=== PATIENT | female | born 1990 | race Caucasian/White ===

== ENCOUNTER 2017-03-23 11:52 | Inpatient (IN) | payer BC ==
[~2017-03-23] VITALS: Ht 162.6 cm; Wt 88.7 kg
[2017-03-23 11:56] VITALS: BP 123/62; Ht 162.6 cm; Wt 88.7 kg
[2017-03-23] MEDS ORDERED: PREN1TAB17 (11:58)
[2017-03-23] MEDS ORDERED: TERBUTALINE 1 MG/ML INJ SC ONE ×2 (12:30→14:00)
[2017-03-23] MEDS ORDERED: LACTATED RINGER'S 1,000 ML IV ONE (12:30)
--- NOTE | 2017-03-23 13:19 | RADRPT ---
PROCEDURE: US biophysical profile. Transvaginal sonography of the cervix. CLINICAL INDICATION: Ruptured membranes. TECHNIQUE: Multiple sonographic images of the uterus were obtained. In addition, transvag inal sonography of the cervix was performed. The images were reviewed on a PACS workstation. COMPARISON: No prior studies are available for comparison. FINDINGS: There is a single live intrauterine gestation. heart rate is 137 beats per minute. The position is cephalic. The placenta is posterior grade II with no abruption or previa. The JAMESON is 10.2 cm. (Normal = 5-20 cm.) Cervical length is 2.9 cm. Breathing Movement: 2 Gross Body Movement: 2 Tone: 2 Qualitative Amniotic Fluid Volume: 2 TOTAL: 8 IMPRESSION: 1. The biophysical score is 8/8. 2. Cervical length is 2.9 cm. RPTAT: QQ .Montez Cuenca MD, MD Date Time Electronically viewed and signed by .Montez Cuenca MD, on 03/23/2017 13:19 .R/
--- NOTE | 2017-03-23 14:39 | TRIAGE ---
OB Triage Datetime Report Generated by CPN: 03/23/2017 14:39 Datetime: 03/23/2017 13:41 Monitor Mode: External Pattern: Normal: <= 5 Contractions in 10 Minutes Contraction Comments: PER PATIENT IS STILL HAVING UC'S Heart Rate FHR Baseline Rate: 145 Monitor Mode: External US Variability: Moderate 6-25 bpm Accelerations: 15X15 Decelerations: None Category: Category I Datetime: 03/23/2017 12:00 Stage of : OB Triage Assessment Type: Triage Maternal Assessment Level of Consciousness: Fully Conscious DTR's/Clonus: DTRs 2+; No Clonus Headache: Denies Blurred Vision: No Respiratory Effort: Unlabored; Regular Rhythm; Equal Expansion Breath Sounds, Left: Clear and Equal Breath Sounds, Right: Clear and Equal Nausea/Vomiting: Denies RUQ Epigastric Pain: Denies Lower Extremities Edema: None Degree: None Upper Extremities Edema: None Degree: None Facial Edema: None Temperature Route: Oral Fall Risk Assessment History of Falling: (0) No Secondary Diagnosis: (0) No Ambulatory Aid: (0) Bedrest/Nurse Assist IV Therapy: (0) No Gait: (0) Normal/Bedrest/Immobile Mental Status: (0) Oriented to Own Ability Fall Score: 0 Fall Risk Score Definition: No Risk: No action required Labor Evaluation Frequency: 1-3 Monitor Mode: External Duration (sec)2399: 30-50 Pattern: Normal: <= 5 Contractions in 10 Minutes Heart Rate FHR Baseline Rate: 145 Monitor Mode: External US Variability: Moderate 6-25 bpm Accelerations: 15X15 Decelerations: None Category: Category I Pain Assessment Pain Scale: 0 Pain Presence: None/Denies Pain Type: N/A Datetime: 03/23/2017 11:59 Time of Arrival: 03/23/2017 11:41 EGA: 32.0 Arrived By: Ambulatory Arrived From: Home Chief Complaint: ? SROM Movement: Present Contractions: Denies/Absent Rupture of Membranes: Unsure Vaginal Bleeding: Small Vaginal Discharge: Denies Recent Sexual Intercouse: Yes Abdominal Trauma: Not Applicable Patient Complaints: Other Time Provider Notified: 03/23/2017 12:15 Provider Notified: DR. MENDEZ Initial Plan: [id number] CALL ,
[2017-03-23] MEDS: LACTATED RINGER'S 1,000 ML IV SCH (14:44)
[2017-03-23] MEDS: BETAMET NA PHOS/AC(6 MG/ML) 5ML INJ IM SCH (15:07)
[2017-03-23] MEDS ORDERED: AMPICILLIN 2 GM/NS (PMX) 100 ML ONE (15:29)
[2017-03-23] MEDS: AMPICILLIN 2 GM/NS (PMX) 100 ML IVPB SCH ×2 (15:51→22:02)
--- NOTE | 2017-03-23 16:22 | HP ---
Date/Time of Note Date/Time of Note DATE: 03/23/17 TIME: 16:03 OB - History Hx of Present Free Text/Dictation March 23, 2017. OB triage and history and physical for admission: This patient is a 26 years old 3 para 1 1 with estimated date of confinement of 2017, which makes her 32 weeks and 2 days now. She came to triage complaining of a rupture of a member and leaking fluid vaginally. On examination; she is well-developed and nourished somewhat overweight woman. Her general vital signs are normal; with blood pressure 123/62, pulse rate of 100, respiration of 16, and temperature of 98.4 Fahrenheit. Order was placed for the test of possible rupture of membranes. In the ROM plus test came back positive Laboratory Tests Test 03/23/17 12:00 Membranes Rupture POSITIVE Current Medications Medications (Trade) Dose Ordered Sig/Brittney Route PRN Reason Start Time Stop Time Status Last Admin Dose Admin Terbutaline Sulfate 0.25 mg 0.25 mg ONCE ONCE SC 03/23/17 12:30 03/23/17 12:31 DC 03/23/17 12:33 Lactated Ringer's (Lr) 1,000 ml @ 1,000 mls/hr Q1H ONCE IV 03/23/17 12:30 03/23/17 13:29 DC 03/23/17 12:36 Terbutaline Sulfate 0.25 mg 0.25 mg ONCE ONCE SC 03/23/17 14:00 03/23/17 14:01 DC 03/23/17 13:55 Lactated Ringer's (Lr) 1,000 ml @ 125 mls/hr Q8H IV 03/23/17 14:27 03/23/17 14:44 Betamethasone Acet/Betameth SodPhos 12 mg 12 mg Q24H IM 03/23/17 14:30 03/24/17 14:31 03/23/17 15:07 Ampicillin (Ampicillin 2 Gm/ NS (Pmx)) 100 ml @ 100 mls/hr Q6 IVPB 03/23/17 18:00 03/23/17 18:00 DC Azithromycin 500 mg 500 mg DAILY PO 03/24/17 09:00 Ampicillin 100 ml @ 100 mls/hr Q6H IVPB 03/23/17 16:00 03/23/17 15:51 Ampicillin (Ampicillin 2 Gm/ NS (Pmx)) 100 ml @ STK-MED ONCE .ROUTE 03/23/17 15:29 03/23/17 15:30 DC . . . . On ultrasound study ; report was single live intrauterine gestation with heart rate of 137 bpm, in cephalic presentation , placenta was posterior ,no evidence of a previa, amniotic fluid index was 10.2 cm, the cervical length was reported 2.9 cm ,her biophysical profile was 8 Care: Good Care Other Concerns: .With these finding patient will be admitted in the hospital order was placed to give her betamethasone and to start antibiotic azithromycin 1 g orally followed by ampicillin 2 g IV every 6 hours for about 48 hours we will follow her antibiotic treatment with ampicillin orally 500 mg 3 times daily to stop contraction we will start her on mag sulfate . . . .. Past Family/Social History * Past Medical, Surgical, Family and Obstetric Histories reviewed from chart. OB Admission Exam Vital Signs Vital Signs Vital Signs Date Time Temp Pulse Resp B/P Pulse Ox O2 Delivery O2 Flow Rate FiO2 03/23/17 11:56 98.4 123/62 Room Air JUDY MARTINEZ MD Mar 23, 2017 16:13
[2017-03-23 16:55] LABS: BASOPHILS % 0.1 % (0.0-2.0); EOSINOPHILS % 0.1 % (0.0-7.0); HEMATOCRIT 34.4 % (37.0-47.0); HEMOGLOBIN 11.3 g/dl (12.0-16.0); LYMPHOCYTES # 1.9 10^3/ul (0.8-2.9); LYMPHOCYTES % 12.5 % (15.0-51.0); MEAN CORPUSCULAR HEMOGLOBIN 28.5 pg (29.0-33.0); MEAN CORPUSCULAR HGB CONC 32.8 g/dl (32.0-37.0); MEAN CORPUSCULAR VOLUME 86.9 fl (82.0-101.0); MEAN PLATELET VOLUME 10.1 fl (7.4-10.4); MONOCYTE # 0.8 10^3/ul (0.3-0.9); MONOCYTES % 5.6 % (0.0-11.0); NEUTROPHILS % 80.8 % (39.0-77.0); PLATELET COUNT 375 10^3/UL (140-415); RED BLOOD COUNT 3.96 10^6/ul (4.20-5.40); RED CELL DISTRIBUTION WIDTH 12.9 % (11.5-14.5); WHITE BLOOD COUNT 14.8 10^3/ul (4.8-10.8)
[2017-03-23] MEDS ORDERED: AZITHROMYCIN 250 MG TAB PO SCH ×2 (17:00→18:00)
[2017-03-23] MEDS ORDERED: MAGNESIUM SULFATE 4 GM/100 ML 100 ML IVPB ONE ×2 (17:00)
[2017-03-23 17:01] LABS: ADD UMIC YES; UR ASCORBIC ACID NEGATIVE (NEGATIVE); UR BACTERIA FEW /HPF (NONE SEEN); UR BILIRUBIN (Dip) NEGATIVE (NEGATIVE); UR BLOOD (Dip) NEGATIVE (NEGATIVE); UR CLARITY SLIGHTLY CLOUDY (CLEAR); UR COLOR YELLOW (YELLOW); UR GLUCOSE (Dip) 1+ mg/dL (NEGATIVE); UR KETONES (Dip) 2+ mg/dL (NEGATIVE); UR LEUKOCYTE ESTERASE (Dip) TRACE Leu/ul (NEGATIVE); UR MUCUS MANY /HPF (NONE SEEN); UR NITRITE (Dip) NEGATIVE (NEGATIVE); UR RBC 1 /HPF (0-5); UR SPECIFIC GRAVITY (Dip) 1.018 (1.003-1.030); UR SQUAMOUS EPITHELIAL CELL MANY /HPF (FEW); UR TOTAL PROTEIN (Dip) 1+ mg/dl (NEGATIVE); UR UROBILINOGEN (Dip) NEGATIVE (NEGATIVE)
[2017-03-23 17:08] LABS: INR 0.98
[2017-03-23 17:09] LABS: PARTIAL THROMBOPLASTIN TIME 24.3 Sec (25.0-35.0)
[2017-03-23 17:28] LABS: BARBITURATES Negative (NEGATIVE)
[2017-03-23 17:29] LABS: BENZODIAZEPINES Negative (NEGATIVE); CANNABINOIDS Negative (NEGATIVE); COCAINE Negative (NEGATIVE); OPIATES Negative (NEGATIVE)
[2017-03-23] MEDS ORDERED: AZITHROMYCIN 250 MG TAB PO ONE (18:00)
[2017-03-23] MEDS ORDERED: AMPICILLIN 2 GM/NS (PMX) 100 ML IVPB SCH (18:00)
--- NOTE | 2017-03-23 18:01 | RADRPT ---
PROCEDURE: US OB. CLINICAL INDICATION: Uncertain size and dates. Ruptured membranes TECHNIQUE: Multiple sonographic images of the uterus were obtained. The images were revi ewed on a PACS workstation. COMPARISON: No prior studies are available for comparison. FINDINGS: There is a single live intrauterine gestation. heart rate is 159 beats per minute. Measurements were made in order to determine age. The results are as follows: BPD = 8.17 cm. HC = 28.86 cm. AC = 30.26 cm. FL = 6.55 cm. Estimated weight is 2252 +/- 338 grams. LMP growth percentile is 89 %. Menstrual age by ultrasound dates is 33 weeks 1 day. The estimated date of delivery is 05/10/2018. Amniotic fluid index is 14.6 cm. Position is cephalic and placenta is right fundal grade II. There is no evidence for an abruption or placenta previa. IMPRESSION: 1. Single live intrauterine gestation of 33 weeks 1 day menstrual age by ultrasound dates. 2. The estimated date of delivery is 05/10/2018. 3. Amniotic fluid index is 14.6 cm. RPTAT: QQ .Montez Cuenca MD, Date Time Electronically viewed and signed by .Montez Cuenca MD, on 03/23/2017 18:01 .R/
[2017-03-23] MEDS: MAGNESIUM SULFATE 20 GM/500 ML 500 ML IV SCH (18:30)
[2017-03-23] MEDS: ACETAMINOPHEN 325 MG TAB PO PRN (22:02)
[2017-03-24 01:27] LABS: BASOPHILS % 0.2 % (0.0-2.0); HEMATOCRIT 35.1 % (37.0-47.0); HEMOGLOBIN 11.4 g/dl (12.0-16.0); LYMPHOCYTES # 1.9 10^3/ul (0.8-2.9); LYMPHOCYTES % 15.2 % (15.0-51.0); MEAN CORPUSCULAR HEMOGLOBIN 28.8 pg (29.0-33.0); MEAN CORPUSCULAR HGB CONC 32.5 g/dl (32.0-37.0); MEAN CORPUSCULAR VOLUME 88.6 fl (82.0-101.0); MEAN PLATELET VOLUME 10.2 fl (7.4-10.4); MONOCYTE # 0.4 10^3/ul (0.3-0.9); MONOCYTES % 2.9 % (0.0-11.0); NEUTROPHIL # 10.2 10^3/ul (1.6-7.5); NEUTROPHILS % 80.4 % (39.0-77.0); PLATELET COUNT 375 10^3/UL (140-415); RED BLOOD COUNT 3.96 10^6/ul (4.20-5.40); WHITE BLOOD COUNT 12.7 10^3/ul (4.8-10.8)
[2017-03-24] MEDS: MAGNESIUM SULFATE 20 GM/500 ML 500 ML IV SCH ×3 (03:52→18:37)
[2017-03-24] MEDS: LACTATED RINGER'S 1,000 ML IV SCH ×3 (03:54→14:27)
[2017-03-24] MEDS: AMPICILLIN 2 GM/NS (PMX) 100 ML IVPB SCH ×4 (03:54→22:07)
[2017-03-24] MEDS: ACETAMINOPHEN 325 MG TAB PO PRN ×2 (08:48→18:37)
[2017-03-24] MEDS ORDERED: AZITHROMYCIN 250 MG TAB PO SCH (09:00)
--- NOTE | 2017-03-24 10:28 | QN ---
Documentation Comment Afebrile Vital signs are stable Denies any leakage from the vagina, last JAMESON on March 23, 2011, 14.6 up from 10.2, with repeat JAMESON today plan pending the report, for possible discharge TED MENDEZ MD Mar 24, 2017 10:28
--- NOTE | 2017-03-24 11:11 | RADRPT ---
PROCEDURE: Limited OB ultrasound CLINICAL INDICATION: Leaking fluid TECHNIQUE: Sonographic evaluation to assess the JAMESON was performed. Transabdominal imaging of the gravid uterus was performed. COMPARISON: OB ultrasound dated 03/23/2017 FINDINGS: There is a single live intrauterine with a heart rate of 128 bpm. position is breech. The placenta is posterior. The JAMESON measures 10.0 cm. IMPRESSION: 1. The JAMESON measures 10.0 cm, compared to 14.6 cm on the prior examination. 2. Breech presentation. RPTAT: HH .Christie Baires MD, MD Date Time Electronically viewed and signed by .Christie Baires MD, on 03/24/2017 11:11 .G/
--- NOTE | 2017-03-24 12:21 | CONS ---
Date/Time of Note Date/Time of Note DATE: 03/24/17 TIME: 12:14 Consultation Date/Type/Reason Admit Date/Time Mar 23, 2017 at 14:36 Date of Consultation: Mar 24, 2017 Type of Consultation: Neonatology consultation Reason for Consultation 32 week with possible rupture of membranes Referring Provider: TED MENDEZ MD Hx of Present Illness I was asked to talk with his mother who is 32 weeks with possible PPROM on 02/20/17 at 0400 hours. Mother was admitted on 03/23/17. She was started on magnesium sulfate and received first dose of betamethasone on at 1500 hrs. and also started on antibiotics on 03/23. Mother is a 26-year-old 3 para 1 term 1 Ab1 living 1 with the sporadic care. She missed 3-4 appointments per the RN. EDC 05/18/2017. Mother' s blood type is B+, RPR nonreactive and rest of the labs are pending. fibronectin was positive once and negative once. ultrasound showed the estimated weight of 2252 g with a gestational age of 33.1 weeks. Gestation by dates is 32.1 weeks today. Mother has history of asthma but however states that she has not been taking any medications at the present time. I talked with mother about the fetus being 32 weeks with risk for respiratory distress syndrome being low. Discussed about providing care as needed. If infant has respiratory distress infant may need oxygen administration, CPAP or Curosurf administration if has mild to moderate respiratory distress syndrome. I discussed about the risks and benefits of each procedure. Also discussed about risk of apnea prematurity and treatment with caffeine. Discussed about risk for sepsis, hyperbilirubinemia, gastroesophageal reflux, NEC and neurodevelopmental delay. Discussed about treatment with phototherapy, infant to be monitored for sepsis and started on antibiotics if needed, IV nutrition including TPN administration and feedings to be started if stable with gavage feedings. Encourage mother to pump breastmilk. Discussed about the benefits of breastmilk. Also discussed about length of hospital stay and possibility of requirement of 4 PICC line for IV nutrition depending on ' s feeding tolerance. Discussed about good prognosis including survival rate of greater than 95% and good outcomes. Mother was reassured about the good prognosis as well as outcomes. All mother's questions were answered and the discussion was concluded after mother had no further questions. Mother has an [id number] at home who is doing well with no medical problems. Thank you for involving us in the care of this mother. Social History Smoking Status: Never smoker Exam/Review of Systems Vital Signs Vitals Vital Signs Date Time Temp Pulse Resp B/P Pulse Ox O2 Delivery O2 Flow Rate FiO2 03/23/17 11:56 98.4 123/62 Room Air Intake and Output 03/23/17 03/23/17 03/24/17 15:00 23:00 07:00 Intake Total 500 ml 2375 ml 1337.5 ml Output Total 200 ml 2050 ml 1150 ml Balance 300 ml 325 ml 187.5 ml Results Result Diagram: 03/24/17 0116 Results 24 hrs Laboratory Tests Test 03/23/17 14:00 03/23/17 16:41 03/24/17 01:16 03/24/17 05:39 Urine Color YELLOW Urine Clarity SLIGHTLY CLOUDY A Urine pH 6.0 Urine Specific [place] 1.018 Urine Ketones 2+ H Urine Nitrite NEGATIVE Urine Bilirubin NEGATIVE Urine Urobilinogen NEGATIVE Urine Leukocyte Esterase TRACE A Urine Microscopic RBC 1 Urine Microscopic WBC 6 H Urine Squamous Epithelial Cells MANY A Urine Bacteria FEW A Urine Mucus MANY A Urine Hemoglobin NEGATIVE Urine Glucose 1+ H Urine Total Protein 1+ H Urine Opiates Screen Negative Urine Barbiturates Negative Urine Amphetamines Screen Negative Urine Benzodiazepines Screen Negative Urine Cocaine Screen Negative Urine Cannabinoids Negative White Blood Count 14.8 H 12.7 H Red Blood Count 3.96 L 3.96 L Hemoglobin 11.3 L 11.4 L Hematocrit 34.4 L 35.1 L Mean Corpuscular Volume 86.9 88.6 Mean Corpuscular Hemoglobin 28.5 L 28.8 L Mean Corpuscular Hemoglobin Concent 32.8 32.5 Red Cell Distribution Width 12.9 13.0 Platelet Count 375 375 Mean Platelet Volume 10.1 10.2 Neutrophils % 80.8 H 80.4 H Lymphocytes % 12.5 L 15.2 Monocytes % 5.6 2.9 Eosinophils % 0.1 0.0 Basophils % 0.1 0.2 Nucleated Red Blood Cells % 0.0 0.0 Neutrophils # 12.0 H 10.2 H Lymphocytes # 1.9 1.9 Monocytes # 0.8 0.4 Eosinophils # 0.0 0.0 Basophils # 0.0 0.0 Nucleated Red Blood Cells # 0.0 0.0 Prothrombin Time 13.0 Prothrombin Time Ratio 1.0 INR International Normalized Ratio 0.98 Activated Partial Thromboplast Time 24.3 L Rapid Plasma Reagin NONREACTIVE Magnesium Level 4.1 H 4.5 H Test 03/24/17 10:20 Membranes Rupture NEGATIVE Medications Medications Current Medications Lactated Ringer's (Lr) 1,000 ml @ 125 mls/hr Q8H IV Last administered on 03/24 03:54; Admin Dose 125 MLS/HR; Start 03/23/17 at 14:27 Betamethasone Acet/Betameth SodPhos 12 mg 12 mg Q24H IM Last administered on 15:07; Admin Dose 12 MG; Start 03/23/17 at 14:30; Stop 03/24/17 at 14: 31 Ampicillin 100 ml @ 100 mls/hr Q6H IVPB Last administered on 03/24/17 10:10 ; Admin Dose 100 MLS/HR; Start 03/23/17 at 16:00; Stop 03/25/17 at 16:00 Magnesium Sulfate (Magnesium Sulfate 20 Gm/500 ml) 500 ml @ 62.5 mls/hr Q8H IV Last administered on 03/24/17 11:13; Admin Dose 62.5 MLS/HR; Start 03/23/17 at 17:00 Amoxicillin (Amoxicillin) 500 mg Q8 PO ; Start 03/25/17 at 16:00; Stop at 16:00 Acetaminophen (Tylenol Tab) 650 mg Q4H PRN PO PAIN AND OR ELEVATED TEMP Last administered on 03/24/17 08:48; Admin Dose 650 MG; Start 03/23/17 at 22:00 Influenza Virus Vaccine (Fluzone) 0.5 ml ONCE ONCE IM* ; Start 03/25/17 at 09: 00; Stop 03/25/17 at 09:01 BALJIT SCHULER MD Mar 24, 2017 12:21
[2017-03-24 13:11] LABS: BASOPHILS % 0.1 % (0.0-2.0); EOSINOPHILS % 0.1 % (0.0-7.0); HEMATOCRIT 32.6 % (37.0-47.0); HEMOGLOBIN 10.5 g/dl (12.0-16.0); LYMPHOCYTES # 2.7 10^3/ul (0.8-2.9); LYMPHOCYTES % 18.6 % (15.0-51.0); MEAN CORPUSCULAR HEMOGLOBIN 28.2 pg (29.0-33.0); MEAN CORPUSCULAR HGB CONC 32.2 g/dl (32.0-37.0); MEAN CORPUSCULAR VOLUME 87.6 fl (82.0-101.0); MEAN PLATELET VOLUME 10.2 fl (7.4-10.4); MONOCYTE # 1.1 10^3/ul (0.3-0.9); MONOCYTES % 7.3 % (0.0-11.0); NEUTROPHIL # 10.5 10^3/ul (1.6-7.5); NEUTROPHILS % 72.3 % (39.0-77.0); NUCLEATED RED BLOOD CELLS% 0.1 /100WBC (0.0-0.0); PLATELET COUNT 375 10^3/UL (140-415); RED BLOOD COUNT 3.72 10^6/ul (4.20-5.40); RED CELL DISTRIBUTION WIDTH 13.2 % (11.5-14.5); WHITE BLOOD COUNT 14.6 10^3/ul (4.8-10.8)
[2017-03-24 13:30] LABS: ALBUMIN 3.3 g/dl (3.3-4.9); ALBUMIN/GLOBULIN RATIO 1.1; BILIRUBIN,INDIRECT 0.2 mg/dl (0-1.1); BILIRUBIN,TOTAL 0.2 mg/dl (0.2-1.3); CALCIUM 6.9 mg/dl (8.4-10.2); CREATININE 0.4 mg/dl (0.44-1.00); POTASSIUM 3.5 mmol/L (3.5-5.1); TOTAL PROTEIN 6.3 g/dl (6.1-8.1)
[2017-03-24 13:35] LABS: INR 1.11; PROTIME 14.3 Sec (12.2-14.2); PT RATIO 1.1
[2017-03-24 13:36] LABS: PARTIAL THROMBOPLASTIN TIME 22.1 Sec (25.0-35.0)
[2017-03-24] MEDS: BETAMET NA PHOS/AC(6 MG/ML) 5ML INJ IM SCH (15:15)
[2017-03-25] MEDS: LACTATED RINGER'S 1,000 ML IV SCH ×3 (01:06→16:26)
[2017-03-25] MEDS: MAGNESIUM SULFATE 20 GM/500 ML 500 ML IV SCH ×2 (02:09→10:02)
[2017-03-25] MEDS: AMPICILLIN 2 GM/NS (PMX) 100 ML IVPB SCH ×2 (04:17→09:59)
[2017-03-25] MEDS ORDERED: INFLUENZA VIRUS VACCINE 0.5 ML SYG IM* ONE (09:00)
[2017-03-25 11:16] LABS: RUBELLA ANTIBODY - IGG <0.90 index
--- NOTE | 2017-03-25 12:23 | RADRPT ---
PROCEDURE: US Pelvis. CLINICAL INDICATION: 32.2 pprom f/u TECHNIQUE: Multiple sonographic images of the pelvis were obtained utilizing a transabdominal tech nique. The images were reviewed on a PACS workstation. COMPARISON: 02/21/2017. FINDINGS: There is a single live intrauterine with heart rate measuring 123 beats per minute. The presentation is breech. A grade 2 posterior fundal placenta is present. The JAMESON measures 1 2.5 cm. On the examination of comparison the JAMESON measured 10.0 cm. IMPRESSION: 1. The JAMESON measures 12.5 cm and previously measured 10.0 cm on examination dated 03/24/2017. 2. Single live intrauterine 3. Breech presentation. RPTAT: HRSR Physician Renu Date Time Electronically viewed and signed by Physician Renu on 03/25/2017 12:23 RR/
[2017-03-25] MEDS: CEFAZOLIN 2 GM/50 ML (PMX) 50 ML IVPB SCH ×2 (13:08→22:05)
[2017-03-25] MEDS ORDERED: AL HYDROX/MG HYDROX/SIMETH 30 ML CUP PO ONE (14:00)
[2017-03-25] MEDS ORDERED: CEFAZOLIN 2 GM/50 ML (PMX) 50 ML IVPB SCH (14:00)
--- NOTE | 2017-03-25 15:26 | PERINOTE ---
Date/Time of Note Date/Time of Note DATE: 03/25/17 TIME: 15:19 Assessment/Recommendations Other Assessments IUP 32W2D Not ruptured contractions, now resolved Probable gestational diabetes Recommendations: I feel that this patient could be discharged at this time. I would enroll her in diabetes education and perinatology follow up for GDM as an outpatient. OB Subjective Free Text/Dictaton Patient was admitted with questionable rupture of membranes and contractions HD# 3 IUP @ 32W2D Complaints/Overnight events Patient now reports no contractions. Magnesium was recently D/C'd Patient originally thought to have ROM. Recent ROM+ is negative, patient with stable JAMESON after sitting up for a period. Impression is no ROM Patient also with HgbA1c of 6.7%, suggesting gestational diabetes. Current Medications Current Medications Lactated Ringer's (Lr) 1,000 ml @ 125 mls/hr Q8H IV Last administered on 03/25 01:06; Admin Dose 125 MLS/HR; Start 03/23/17 at 14:27 Acetaminophen 650 mg 650 mg Q4H PRN PO PAIN AND OR ELEVATED TEMP Last administered on 03/24/17 18:37; Admin Dose 650 MG; Start 03/23/17 at 22:00 Cefazolin Sodium/ Dextrose (Ancef 2 Gm/50 ml (Pmx)) 50 ml @ 100 mls/hr Q8 IVPB Last administered on 03/25/17 13:08; Admin Dose 100 MLS/HR; Start 03/25/17 at 12:00 Past Medical History Medical History: other (Asthma. Last albuterol use 2 years ago) Surgical History: no surgical history SURGICAL PATHOLOGIST History: no pertinent SURGICAL PATHOLOGIST history Para: 1 (Htn in late ) : 3 LMP (Females 10-50): Family History Significant Family History: diabetes Social History Smoker: non-smoker Alcohol: none Drugs: none OB Admission Exam Physical Exam Vitals: Vital Signs Date Time Temp Pulse Resp B/P Pulse Ox O2 Delivery O2 Flow Rate FiO2 03/25/17 132/54 Room Air Abdomen: WNL Heart Rate: 130's Accelerations: Accelerations Present Decelerations: No Decelerations Varibility: Moderate Contractions on Admission: None Last 72 hours Lab Results CBC & BMP 03/23/17 16:41 03/24/17 01:16 03/24/17 12:47 03/24/17 12:50 Liver Function Test 03/24/17 12:50 Alanine Aminotransferase (ALT/SGPT) 24 Albumin 3.3 Alkaline Phosphatase 224 H Aspartate Amino Transf (AST/SGOT) 16 Direct Bilirubin 0.00 Total Protein 6.3 Hemoglobin A1C Test 03/25/17 09:51 Hemoglobin A1c 6.7 H Magnesium Level Test 03/24/17 01:16 03/24/17 05:39 03/24/17 12:50 03/24/17 19:01 Magnesium Level 4.1 H 4.5 H 4.6 H 5.0 H Test 03/25/17 00:57 03/25/17 06:16 03/25/17 11:50 Magnesium Level 5.1 *H 5.1 *H 5.0 H Copies To: CC: TED MENDEZ MD, MARIE H MD Mar 25, 2017 15:26
[2017-03-25] MEDS ORDERED: AMOXICILLIN 500 MG CAP PO SCH (16:00)
[2017-03-25] MEDS: ACETAMINOPHEN 325 MG TAB PO PRN (20:02)
[2017-03-26] MEDS: LACTATED RINGER'S 1,000 ML IV SCH ×4 (00:41→22:27)
[2017-03-26] MEDS: CEFAZOLIN 2 GM/50 ML (PMX) 50 ML IVPB SCH ×3 (05:51→21:55)
--- NOTE | 2017-03-26 09:13 | QN ---
Documentation Comment 32 weeks who originally admitted to rule out mature rupture of membranes from plus test was positive the first time - negative 24 hours later, JAMESON ranging between 14.6 and 12.5, hemoglobin A1c 6.76 suspected GDM, recommended consult with the senior assistant manager, discharged home in TED Arce MD Mar 26, 2017 09:13
[2017-03-26] MEDS: ACCU-CHEK XX SCH ×3 (11:30→20:22)
--- NOTE | 2017-03-26 17:20 | RADRPT ---
PROCEDURE: Limited obstetric ultrasound CLINICAL INDICATION: Pain , PTL TECHNIQUE: Multiple transverse and longitudinal grayscale images of the pelvis were obtained bowden sabdominally and transvaginally.. COMPARISON: 03/25/17 FINDINGS: The cervix is closed with a length of 3.0 cm. There is a single viable intrauterine gestation. Cardiac activity is present with 146 beats per min joshua. There is a transverse maternal left presentation. The placenta is posterior. There is no evidence for an abruption or placenta previa. RPTAT: AA IMPRESSION: Cervix length measures 3.0 cm. .Brandon Reich MD, MD Date Time Electronically viewed and signed by .Brandon Reich MD, on 03/26/2017 17:20 .S/
[2017-03-26] MEDS: NIFEdipine 10 MG CAP PO SCH (17:23)
[2017-03-27] MEDS: NIFEdipine 10 MG CAP PO SCH ×4 (00:22→17:50)
[2017-03-27] MEDS: LACTATED RINGER'S 1,000 ML IV SCH ×2 (01:05→09:06)
[2017-03-27] MEDS: CEFAZOLIN 2 GM/50 ML (PMX) 50 ML IVPB SCH ×2 (05:42→13:32)
[2017-03-27] MEDS ORDERED: ACCU-CHEK XX SCH (06:00)
[2017-03-27] MEDS: ACCU-CHEK XX SCH ×2 (10:10→14:01)
--- NOTE | 2017-03-27 10:11 | RADRPT ---
PROCEDURE: Limited OB ultrasound CLINICAL INDICATION: Low JAMESON TECHNIQUE: Sonographic evaluation to assess the JAMESON was performed. Transabdominal imaging of the gravid uterus was performed. COMPARISON: OB ultrasound for JAMESON dated 03/25/2017 FINDINGS: There is a single live intrauterine with a heart rate of 168 bpm. position is cephalic. The placenta is posterior. The JAMESON measures 11.3 cm. IMPRESSION: The JAMESON measures 11.3 cm. RPTAT: HH .Christie Baires MD, MD Date Time Electronically viewed and signed by .Christie Baires MD, on 03/27/2017 10:11 .G/
--- NOTE | 2017-03-27 18:14 | PDOCDIS ---
Discharge Instructions CONDITION Patient Condition: Good HOME CARE INSTRUCTIONS: Diet Instructions: Regular ACTIVITY: Activity Restrictions: No Sexual Activity Bathing Restrictions: Shower FOLLOW UP/APPOINTMENTS Follow-up Plan All tests for premature rupture of membrane are negative her JAMESON level has been consistent between 11 and 12, perinatologist recommended she may go home today, she is discharged home with follow-up instruction advised to keep her appointment with perinatology clinic, also to make appointment with EVS ATTENDANT office, recommended pelvic rest, return to triage if experiencing any vaginal leakage, decreased movement or UTI symptoms, or any other problems, since the result of her urine culture and sensitivity was positive for group B strep and E. coli received a prescription of Macrobid 100 mg twice daily for 2 weeks. TED MENDEZ MD Mar 27, 2017 18:14
--- NOTE | 2017-03-27 18:31 | DS ---
Date/Time of Note Date/Time of Note DATE: 03/27/17 TIME: 18:21 Discharge Summary Admission/Discharge Info Admit Date/Time Mar 23, 2017 at 14:36 Discharge Date/Time March 27, 2017 at 1800 Discharge Diagnosis Day 4 post admission for observation to rule out premature rupture of membrane old tests for premature rupture of membrane were negative except the first one which was not confirmed with the second test and not consistent with stable JAMESON perinatologist recommended she may go home today to continue follow-up with perinatologist, her first appointment is made for March 29, 2017. Consults Perinatologist Procedures Workup to rule out premature rupture of membrane Hx of Present Illness Patient came to triage unit with chief complaint of vaginal leaking. Hospital Course I was asked to talk with his mother who is 32 weeks with possible PPROM on 02/20/17 at 0400 hours. Mother was admitted on 03/23/17. She was started on magnesium sulfate and received first dose of betamethasone on at 1500 hrs. and also started on antibiotics on 03/23. Mother is a 26-year-old 3 para 1 term 1 Ab1 living 1 with the sporadic care. She missed 3-4 appointments per the RN. EDC 05/18/2017. Mother' s blood type is B+, RPR nonreactive and rest of the labs are pending. fibronectin was positive once and negative once. ultrasound showed the estimated weight of 2252 g with a gestational age of 33.1 weeks. Gestation by dates is 32.1 weeks today. Mother has history of asthma but however states that she has not been taking any medications at the present time. I talked with mother about the fetus being 32 weeks with risk for respiratory distress syndrome being low. Discussed about providing care as needed. If has respiratory distress infant may need oxygen administration, CPAP or Curosurf administration if infant has mild to moderate respiratory distress syndrome. I discussed about the risks and benefits of each procedure. Also discussed about risk of apnea prematurity and treatment with caffeine. Discussed about risk for sepsis, hyperbilirubinemia, gastroesophageal reflux, NEC and neurodevelopmental delay. Discussed about treatment with phototherapy, to be monitored for sepsis and started on antibiotics if needed, IV nutrition including TPN administration and feedings to be started if stable with gavage feedings. Encourage mother to pump breastmilk. Discussed about the benefits of breastmilk. Also discussed about length of hospital stay and possibility of requirement of 4 PICC line for IV nutrition depending on infant' s feeding tolerance. Discussed about good prognosis including survival rate of greater than 95% and good outcomes. Mother was reassured about the good prognosis as well as outcomes. All mother's questions were answered and the discussion was concluded after mother had no further questions. Mother has an [id number] at home who is doing well with no medical problems. Thank you for involving us in the care of this mother. Home Meds Reported Medications Vit-Iron Fumarate-FA ( Tablet) 1 Each Tablet, 1 TAB DAILY, TAB 03/23/17 Follow-up Plan All tests for premature rupture of membrane are negative her JAMESON level has been consistent between and , perinatologist recommended she may go home today, she is discharged home with follow-up instruction advised to keep her appointment with perinatology clinic, also to make appointment with MECHANICAL CAD DRAFTER office, recommended pelvic rest, return to triage if experiencing any vaginal leakage, decreased movement or UTI symptoms, or any other problems, since the result of her urine culture and sensitivity was positive for group B strep and E. coli received a prescription of Macrobid 100 mg twice daily for 2 weeks. Primary Care Provider Not On Staff Doctor Time spent on discharge: < 30 minutes Pending Labs Laboratory Tests Test 03/26/17 19:45 03/27/17 07:42 03/27/17 10:55 03/27/17 12:57 Bedside Glucose 180mg/dL (70-220) 109mg/dL (70-220) 112mg/dL (70-220) 104mg/dL (70-220) Test 03/27/17 15:02 03/27/17 17:19 Bedside Glucose 123mg/dL (70-220) 94mg/dL (70-220) TED MENDEZ MD Mar 27, 2017 18:31
== END 2017-03-27 19:55 | disposition home or self-care (01) | DRG 780 ==
LOC: L-D 11:52 → OBT 11:52 → OBG 14:36 → OBT 14:44
PROVIDERS: ADMIT Obstetrics & Gynecology; ATTEND Obstetrics & Gynecology
DX: O47.03 False labor before 37 completed weeks of gestation, third trimester (principal); Z3A.32 32 weeks gestation of pregnancy
CPT/HCPCS: 36415; 76815; 76816; 76817; 76818; 80053; 80307; 81001; 82962; 83036; 83735; 84112; 85025; 85610; 85730; 86592; 86703; 86762; 86900; 86901; 87081; 87086; 87340; 90686; 96360; 96372; G0463; J0290; J0690; J0702; J3105; J3475; J7120

== ENCOUNTER 2017-04-22 22:59 | Inpatient (IN) | payer BC ==
[~2017-04-22] VITALS: Ht 162.6 cm; Wt 88.1 kg
[~2017-04-22 22:59] MED LIST: PREN1TAB17
--- NOTE | 2017-04-22 23:01 | NSTRPT ---
NST Information Datetime Report Generated by CPN: 04/22/2017 23:01 Datetime: 04/17/2017 09:11 NST Information EGA: 35.4 Test Number: 4 Time on Monitor: 04/17/2017 09:38 Time off Monitor: 04/17/2017 10:03 NST Duration (Min): 25 Reason for NST: Diabetes Mellitus; Other Reason for NST Other: A1DM Test and Monitor Explained: Monitor Explained; Test Explained; Verbalized Understanding Pulse: 85 Resp: 17 SBP: 103 DBP: 56 Test Evaluation NST Interventions: Reposition Patient Patient States Movement: Present Contraction Frequency: irregular, denies FHR Baseline : 130 Variability: Moderate 6-25bpm Accelerations: 15X15 Decelerations: None FHR Category: Category I NST Results: Reactive Comments: To u/s, JAMESON 13.1cm, cephalic FBS 92 Electronically Signed By E-Signature: with User ID: [id number] Datetime: 04/10/2017 08:46 NST Information EGA: 34.4 NST Duration (Min): 25 Datetime: 04/04/2017 08:16 NST Information EGA: 33.5 NST Duration (Min): 32 Datetime: 03/30/2017 09:50 NST Information EGA: 33.0 NST Duration (Min): 33
[2017-04-22 23:33] VITALS: BP 119/68; PULSE 110; RESP 18; Ht 162.6 cm; Wt 88.1 kg
[2017-04-23] MEDS ORDERED: LACTATED RINGER'S 1,000 ML IV* ONE
--- NOTE | 2017-04-23 00:01 | PN ---
Triage Information Date/Time Reason for visit: Uterine contractions Weeks of Gestation Patient is a 27-year-old 3 para 1 at 36 weeks and 2 days of gestation with estimated date of delivery May 18, 2017 Patient was admitted earlier in for labor and received betamethasone 2 doses and was placed on Procardia which was discontinued at 36 weeks of gestation She also has gestational diabetes She is currently reporting uterine contractions, positive movement, no leaking fluid , no vaginal bleeding /Para 3 para 1 Diabetes: gestational Hypertention: none Additional information History of labor during this Patient received betamethasone 2 doses Patient was placed on Procardia which was stopped at 36 weeks of gestation History of UTI during this Objective Vital Signs Date Time Temp Pulse Resp B/P Pulse Ox O2 Delivery O2 Flow Rate FiO2 04/22/17 23:33 98.0 110 18 119/68 Room Air Heart Rate: 140's Contractions: < 5 Minutes Apart Exam Vaginal exam per nurse 1 cm/50%/-2 Assessment/Plan IV fluid, IV ABX labs, UA Terbutaline up to 3 doses Admit to labor and delivery Expected management PEYMAN GONSALEZ MD Apr 23, 2017 00:01
[2017-04-23] MEDS ORDERED: MISOPROSTOL 200 MCG TAB PR PRN (00:30)
[2017-04-23] MEDS ORDERED: OXYTOCIN 30 UNITS/LR 500 ML IV SCH ×2 (00:30)
[2017-04-23] MEDS ORDERED: BUTORPHANOL 2 MG INJ IV PRN (00:30)
[2017-04-23] MEDS ORDERED: METHYLERGONOVINE 0.2 MG INJ IM PRN (00:30)
[2017-04-23] MEDS ORDERED: OXYTOCIN 30 UNITS/LR 500 ML IV PRN (00:30)
[2017-04-23] MEDS ORDERED: IBUPROFEN 600 MG TAB PO PRN (00:30)
[2017-04-23] MEDS ORDERED: CARBOPROST 250 MCG INJ IM PRN (00:30)
[2017-04-23] MEDS ORDERED: LIDOCAINE 1% (MPF) 30 ML INJ INJ PRN (00:30)
[2017-04-23] MEDS ORDERED: TERBUTALINE 1 MG/ML INJ SC ONE ×2 (00:30)
--- NOTE | 2017-04-23 00:38 | HP ---
Date/Time of Note Date/Time of Note DATE: 04/23/17 TIME: 00:32 OB - History Hx of Present Free Text/Dictation Patient is a 27-year-old 3 para 1 at 36 weeks and 2 days of gestation with estimated date of delivery May 18, 2017 Patient was admitted earlier in for labor and received betamethasone 2 doses and was placed on Procardia which was discontinued at 36 weeks of gestation She also has gestational diabetes Patient reports that she was treated for urinary tract infection during this She is currently reporting uterine contractions every 2 minutes, positive movement, no leaking fluid , no vaginal bleeding Chief Complaint: Uterine contractions Estimated Due Date: May 18, 2017 : 3 Para: 1 Care: Good Care Obstetrical Complications: Gestational Diabetes Other Concerns: Patient with history of labor, Received 2 doses of betamethasone for lung maturity Gestational diabetes Treated for UTI during this Past Family/Social History * Past Medical, Surgical, Family and Obstetric Histories reviewed from chart. OB Admission Exam Vital Signs Vital Signs Vital Signs Date Time Temp Pulse Resp B/P Pulse Ox O2 Delivery O2 Flow Rate FiO2 04/22/17 23:33 98.0 110 18 119/68 Room Air Physical Exam HEENT: WNL Heart: Rhythm Normal Lungs: Clear, Equal Abdomen: WNL Extremities: Normal Reflexes: Normal Cervical Dilatation: 1cm Effacement: 50% Station: -2 Membranes: Intact Heart Rate: 140's Accelerations: Accelerations Present Decelerations: No Decelerations Varibility: Moderate Contractions on Admission: < 5 Minutes Apart Intensity: Moderate OB Assessment/Plan Reason for admission: IUP - , labor Other Assessment: Patient is a 27-year-old 3 para 1 at 36 weeks and 2 days of gestation with labor Other plan: Admit to labor and delivery IVF, IV antibiotics prophylaxis labs, UA Terbutaline as needed Expectant management PEYMAN GONSALEZ MD Apr 23, 2017 00:38
[2017-04-23] MEDS ORDERED: AMPICILLIN 2 GM/NS (PMX) 100 ML IVPB ONE (01:00)
[2017-04-23] MEDS: AMPICILLIN 1 GM/NS (PMX) 50 ML IVPB SCH ×6 (01:00→20:47)
[2017-04-23 01:21] LABS: BASOPHILS % 0.1 % (0.0-2.0); EOSINOPHILS # 0.1 10^3/ul (0.0-0.5); EOSINOPHILS % 0.8 % (0.0-7.0); HEMATOCRIT 36.6 % (37.0-47.0); HEMOGLOBIN 11.8 g/dl (12.0-16.0); LYMPHOCYTES # 1.6 10^3/ul (0.8-2.9); LYMPHOCYTES % 11.5 % (15.0-51.0); MEAN CORPUSCULAR HEMOGLOBIN 26.9 pg (29.0-33.0); MEAN CORPUSCULAR HGB CONC 32.2 g/dl (32.0-37.0); MEAN CORPUSCULAR VOLUME 83.6 fl (82.0-101.0); MEAN PLATELET VOLUME 10.6 fl (7.4-10.4); MONOCYTE # 0.8 10^3/ul (0.3-0.9); MONOCYTES % 5.6 % (0.0-11.0); NEUTROPHIL # 11.1 10^3/ul (1.6-7.5); NEUTROPHILS % 81.5 % (39.0-77.0); PLATELET COUNT 321 10^3/UL (140-415); RED BLOOD COUNT 4.38 10^6/ul (4.20-5.40); RED CELL DISTRIBUTION WIDTH 13.6 % (11.5-14.5); WHITE BLOOD COUNT 13.6 10^3/ul (4.8-10.8)
[2017-04-23 01:26] LABS: ADD UMIC YES; UR ASCORBIC ACID NEGATIVE (NEGATIVE); UR BACTERIA FEW /HPF (NONE SEEN); UR BILIRUBIN (Dip) NEGATIVE (NEGATIVE); UR BLOOD (Dip) NEGATIVE (NEGATIVE); UR CLARITY CLOUDY (CLEAR); UR COLOR AMBER (YELLOW); UR GLUCOSE (Dip) 1+ mg/dL (NEGATIVE); UR KETONES (Dip) 2+ mg/dL (NEGATIVE); UR LEUKOCYTE ESTERASE (Dip) 2+ Leu/ul (NEGATIVE); UR MUCUS MODERATE /HPF (NONE SEEN); UR NITRITE (Dip) NEGATIVE (NEGATIVE); UR RBC 25 /HPF (0-5); UR SPECIFIC GRAVITY (Dip) 1.028 (1.003-1.030); UR SQUAMOUS EPITHELIAL CELL MANY /HPF (FEW); UR TOTAL PROTEIN (Dip) 2+ mg/dl (NEGATIVE); UR UROBILINOGEN (Dip) 1+ mg/dL (NEGATIVE)
[2017-04-23 01:38] LABS: INR 0.91; PROTIME 12.3 Sec (11.9-14.9)
[2017-04-23 01:39] LABS: PARTIAL THROMBOPLASTIN TIME 26.2 Sec (25.0-35.0)
[2017-04-23] MEDS: LACTATED RINGER'S 1,000 ML IV SCH ×2 (02:02→10:40)
[2017-04-23] MEDS: ACETAMINOPHEN 325 MG TAB PO PRN ×2 (04:31→11:31)
--- NOTE | 2017-04-23 14:47 | RADRPT ---
PROCEDURE: Obstetrical ultrasound. CLINICAL INDICATION: , evaluation. Pelvic pain. Gestational diabetes TECHNIQUE: Transabdominal sonographic images of the uterus obtained after first trimester , greater than 14 weeks gestation. Single intrauterine gestation present. COMPARISON: MG 04/17/2017; US 03/27/2017 FINDINGS: Single intrauterine gestation. There is a cephalic presentation. Measurements were made in order to determine age. The results are as follows: BPD = 37 weeks 0 day(s) HC = 34 weeks 1 day(s) AC = 39 weeks 1 day(s) FL = 33 weeks 3 day(s) JAMESON = cm Heart rate = 132 beats per minute The placenta is right - posterior. There is no evidence for an abruption or placenta previa. Ovaries are not visualized. IMPRESSION: Single intrauterine gestation of approximately 36 weeks 0 days by ultrasound criteria. [place] estimated weight = 3110 g; 71 percentile for gestational age of 36 weeks 3 days. RPTAT: AADD .Karsten Brown MD, MD Date Time Electronically viewed and signed by .Karsten Brown MD, on 04/23/2017 14:47 .B/
[2017-04-23] MEDS: DEXTROSE 5%-LR 1,000 ML IV SCH (16:56)
[2017-04-24] MEDS: LACTATED RINGER'S 1,000 ML IV SCH ×4 (01:35→17:34)
[2017-04-24] MEDS: DEXTROSE 5%-LR 1,000 ML IV SCH ×5 (01:35→21:30)
[2017-04-24] MEDS: AMPICILLIN 1 GM/NS (PMX) 50 ML IVPB SCH ×6 (01:38→20:55)
[2017-04-24] MEDS ORDERED: FENTAnyl 2MCG/ML-ROPIV 0.2% 100 ML ONE (17:02)
[2017-04-24] MEDS ORDERED: DIPHENHYDRAMINE 50 MG INJ IV PRN (19:30)
[2017-04-24] MEDS ORDERED: ONDANSETRON 4 MG INJ IV PRN (19:30)
[2017-04-24] MEDS ORDERED: NALOXONE (0.4 MG/ML) INJ IV PRN (19:30)
--- NOTE | 2017-04-24 19:58 | QN ---
Documentation Comment Patient continues to have contractions Afebrile VSS Strip Category I Cervix 5 cm Continue with expectant management. LE CLAIRE MD Apr 24, 2017 19:58
[2017-04-24] MEDS: ACCU-CHEK XX SCH ×4 (20:53→23:04)
[2017-04-25] MEDS: FENTAnyl 2MCG/ML-ROPIV 0.2% 100 ML BAG EPI SCH ×2 (00:10→08:02)
[2017-04-25] MEDS: LACTATED RINGER'S 1,000 ML IV SCH (00:19)
[2017-04-25] MEDS: AMPICILLIN 1 GM/NS (PMX) 50 ML IVPB SCH ×4 (00:58→13:02)
[2017-04-25] MEDS: DEXTROSE 5%-LR 1,000 ML IV SCH ×3 (01:00→05:24)
[2017-04-25] MEDS: ACCU-CHEK XX SCH ×6 (01:00→11:00)
--- NOTE | 2017-04-25 14:13 | LDN ---
Date/Time of Note Date/Time of Note DATE: 04/25/17 TIME: 14:08 Delivery Summary . Shoulder dystocia noted. Mc Matt maneuver performed. Suprapubic pressure was given. Baby's shoulders and trunk subsequently delivered with no traction on baby's neck. Weeks of Gestation 36 weeks and 5 days Placenta Delivered: Manually, Intact & Complete Meconium: none Episiotomy: No Perineal laceration: 1 Laceration repair: Vaginal laceration repaired with 3-0 Vicryl. Anesthesia type: Epidural Estimated blood loss: 400 Sponge & Needle done & correct: Yes All needle counts correct: Yes Any foreign bodies felt in the: No Problems: Delivery Information Sex Infant Sex: male Apgars 1 Minute: 7 5 Minute: 9 Suctioning Nose & mouth suctioned at nathalie: Yes Delee suction performed: No Umbilical Cord Umbilical cord with: 3 Vessels Cord presentations: nuchal cord Nuchal cord present X: 1 Cord Blood was obtained: Yes Mother & Baby Disposition Disposition Mom & Baby to Maternity; Good: Yes LE CLARIE MD Apr 25, 2017 14:13
[2017-04-25] MEDS ORDERED: OXYCODONE/ACETAMINOPHEN (5/325) TAB PO PRN (15:00)
[2017-04-25] MEDS ORDERED: LACTATED RINGER'S 1,000 ML IV* SCH (15:50)
[2017-04-25] MEDS ORDERED: BENZOCAINE 20% 56 ML SPRAY TOP PRN (16:00)
[2017-04-25] MEDS ORDERED: DIBUCAINE 1% 30 GM OINT TOP PRN (16:00)
[2017-04-25] MEDS ORDERED: MISOPROSTOL 200 MCG TAB PR PRN (16:00)
[2017-04-25] MEDS ORDERED: ACETAMINOPHEN 325 MG TAB PO PRN (16:00)
[2017-04-25] MEDS ORDERED: METHYLERGONOVINE 0.2 MG INJ IM PRN (16:00)
[2017-04-25] MEDS ORDERED: HYDROCODONE/APAP (5/325) TAB PO PRN (16:00)
[2017-04-25] MEDS ORDERED: LANOLIN 7 GM TUBE TOP PRN (16:00)
[2017-04-25] MEDS ORDERED: WITCH HAZEL/GLYCERIN PAD PR PRN (16:00)
[2017-04-25] MEDS ORDERED: CARBOPROST 250 MCG INJ IM PRN (16:00)
[2017-04-25] MEDS ORDERED: OXYTOCIN 30 UNITS/LR 500 ML IV PRN (16:00)
[2017-04-25 16:50] VITALS: BP 122/74; PULSE 79; RESP 20
[2017-04-25 17:20] VITALS: BP 120/66; PULSE 76; RESP 18
[2017-04-25] MEDS: IBUPROFEN 600 MG TAB PO SCH (18:00)
[2017-04-25 20:20] VITALS: BP 118/73; PULSE 77; RESP 18
[2017-04-25] MEDS: SENNA/DOCUSATE NA (8.6MG/50MG) TAB PO SCH (20:20)
[2017-04-26] MEDS: IBUPROFEN 600 MG TAB PO SCH ×5 (00:09→23:56)
[2017-04-26 00:20] VITALS: BP 122/69; PULSE 72; RESP 18
[2017-04-26 04:25] VITALS: BP 98/61; PULSE 70; RESP 17
[2017-04-26 08:20] VITALS: BP 118/73; PULSE 73; RESP 20
[2017-04-26] MEDS: SENNA/DOCUSATE NA (8.6MG/50MG) TAB PO SCH ×2 (08:37→20:49)
--- NOTE | 2017-04-26 10:29 | QN ---
Documentation Comment Post normal vaginal delivery day 1 Afebrile Vital signs are stable Abdomen soft, uterus firm lochia normal, extremities normal TED MENDEZ MD Apr 26, 2017 10:29
[2017-04-26 11:15] LABS: BASOPHILS % 0.2 % (0.0-2.0); EOSINOPHILS # 0.2 10^3/ul (0.0-0.5); EOSINOPHILS % 1.7 % (0.0-7.0); HEMATOCRIT 33.5 % (37.0-47.0); HEMOGLOBIN 10.9 g/dl (12.0-16.0); LYMPHOCYTES # 2.6 10^3/ul (0.8-2.9); LYMPHOCYTES % 21.9 % (15.0-51.0); MEAN CORPUSCULAR HEMOGLOBIN 26.8 pg (29.0-33.0); MEAN CORPUSCULAR HGB CONC 32.5 g/dl (32.0-37.0); MEAN CORPUSCULAR VOLUME 82.3 fl (82.0-101.0); MEAN PLATELET VOLUME 10.8 fl (7.4-10.4); MONOCYTE # 0.7 10^3/ul (0.3-0.9); MONOCYTES % 5.8 % (0.0-11.0); NEUTROPHIL # 8.4 10^3/ul (1.6-7.5); NEUTROPHILS % 69.7 % (39.0-77.0); PLATELET COUNT 270 10^3/UL (140-415); RED BLOOD COUNT 4.07 10^6/ul (4.20-5.40); RED CELL DISTRIBUTION WIDTH 14.2 % (11.5-14.5)
[2017-04-26 16:00] VITALS: BP 108/57; PULSE 68; RESP 20
[2017-04-26 19:45] VITALS: PULSE 73; RESP 18
[2017-04-27 04:00] VITALS: BP 117/63; PULSE 67; RESP 21
[2017-04-27] MEDS: IBUPROFEN 600 MG TAB PO SCH ×3 (05:38→17:48)
[2017-04-27 07:30] VITALS: BP 111/67; PULSE 69; RESP 18
[2017-04-27] MEDS ORDERED: DIPHTH/TET/ACEL PERTUSS (ADULT) 0.5 ML VIAL IM* ONE (09:00)
[2017-04-27] MEDS: SENNA/DOCUSATE NA (8.6MG/50MG) TAB PO SCH (09:00)
--- NOTE | 2017-04-27 12:25 | QN ---
Documentation Comment Post normal vaginal delivery day 1 Afebrile Vital signs are stable Abdomen soft, uterus firm lochia normal extremities normal Ambulation recommended planning a.m. discharge TED MENDEZ MD Apr 27, 2017 12:25
--- NOTE | 2017-04-27 15:24 | PD.PPDC ---
[employer] Discharge Instruction Condition Patient Condition: Good Activity/Restrictions Activity: Normal Activity May Shower Restrictions: No Exercising No Lifting No Driving No Sexual Activity Nothing in the Vagina No [place] No Tampons, douche Follow-up Follow-up with Physician: 2, Week/Weeks Provider Information: instruction given recommended to make appointment to be seen at the clinic in 2 weeks Return to clinic for ENERGY PROJECTS LEAD Instructions: Fever greater than 101 OB Instructions: Breast Tenderness Depression Blurried Vision Headache TED MENDEZ MD Apr 27, 2017 15:24
--- NOTE | 2017-04-27 15:32 | DS ---
Date/Time of Note Date/Time of Note DATE: 04/27/17 TIME: 15:30 Discharge Summary Admission/Discharge Info Admit Date/Time Apr 23, 2017 at 00:47 Discharge Date/Time April 27, 2017 at 1530 Discharge Diagnosis Day 2 post vaginal delivery Patient Condition: Good Procedures Vaginal delivery Hx of Present Illness Term Hospital Course Factory recovery uneventful Home Meds Reported Medications Vit-Iron Fumarate-FA ( Tablet) 1 Each Tablet, 1 TAB DAILY, TAB 03/23/17 Follow-up Plan instruction given recommended patient to make appointment to be seen at the clinic in 2 weeks Primary Care Provider Not On Staff Doctor Time spent on discharge: < 30 minutes TED MENDEZ MD Apr 27, 2017 15:32
[2017-04-27 16:05] VITALS: BP 128/66; PULSE 74; RESP 16
== END 2017-04-27 18:46 | disposition home or self-care (01) | DRG 775 ==
LOC: OBT 22:59 → L-D 23:00 → OBT 04-23 00:44 → L-D 04-23 00:47 → PP1 04-25 16:53
PROVIDERS: ADMIT Obstetrics & Gynecology; ATTEND Obstetrics & Gynecology
PROC: 10E0XZZ Delivery of Products of Conception, External Approach (ICD-10-PCS; principal; 2017-04-25)
DX: O60.14X0 Preterm labor third trimester with preterm delivery third trimester, not applicable or unspecified (principal); O71.4 Obstetric high vaginal laceration alone; O66.0 Obstructed labor due to shoulder dystocia; Z3A.36 36 weeks gestation of pregnancy; Z37.0 Single live birth; O24.429 Gestational diabetes mellitus in childbirth, unspecified control
CPT/HCPCS: 62319; 76815; 81001; 82962; 85025; 85610; 85730; 86592; 86900; 86901; 87340; 90715; 99464; G0463; J0290; J0595; J2590; J3010; J3105; J7120; J7121